=== PATIENT | female | born 1975 | race Caucasian/White ===

== ENCOUNTER → 2018-01-15 | Outpatient (CLI) | payer BC ==
[~2018-01-15] MED LIST: AMOXICILLIN500 MG PO; ATIVAN1 MG PO; B COMPLETE1 EACH PO; DIFLUCAN150 MG PO; FLEXERIL5 MG PO; HYDROCODONE BIT1 T11 PO; MOTRIN800 MG PO; NAPROSYN500 MG PO; NORPRAMIN150 MG PO; PERCOCET 325 MG1 TA2; PRISTIQ50 MG PO; SEROQUEL100 MG PO; TORADOL10 MG PO; VITAMIN D-32000 UNIT PO; ZANTAC 150150 MG PO
== END | disposition home or self-care (01) ==
LOC: RAD 13:41
DX: M54.2 Cervicalgia (principal); M53.82 Other specified dorsopathies, cervical region

== ENCOUNTER → 2018-02-18 | Outpatient (CLI) | payer BC | END | disposition home or self-care (01) | LOC: LAB 09:31 | DX: Z79.899 Other long term (current) drug therapy (principal) ==

== ENCOUNTER 2018-06-29 18:41 | Inpatient (IN) | payer BC ==
[~2018-06-29] VITALS: Ht 162.5 cm; Wt 74.9 kg
--- NOTE | ~2018-06-29 | WRIGHTHP ---
[place], [place] PATIENT HISTORY AND PHYSICAL EXAM NAME: SUSAN JONES [facility] #: [id number] UNIT #: [id number] ROOM: 531 DOCTOR: JABARI ELLIS MD BIRTHDATE: [birth year] DOS: 06/29/2018 HISTORY OF PRESENT ILLNESS: This patient is 43 years old. The patient states that he was coming down steps with a load of laundry. She started experience some midsternal chest pain and then it became heaviness and would not resolve, so he decided to come into the Emergency Room where she was evaluated, because of significant risk factors, she will be admitted. The patient states that the chest pain finally resolved this morning, does not have any fever or chills, any pleuritic symptoms, any abdominal pain, nausea, any emesis. Does not have any shortness of breath or palpitations. She does have a slight cough. PAST MEDICAL HISTORY: Significant for, 1. Major depression. 2. Mild anxiety. 3. History of scoliosis with spinal fixation surgery at the age 14. MEDICATIONS: She is on vitamin D 2000 units daily, Pristiq 100 mg daily, Vistaril 100 mg at bedtime, lorazepam 0.5 b.i.d., ranitidine 150 daily, Rexulti 2 mg daily, Imitrex 100 mg daily p.r.n., vitamin B complex 1 tablet daily. SOCIAL HISTORY: Smokes about one and half pack of cigarettes for the last 20 some years. Denies using any alcohol. Works as a nurse. She is , has 2 children, 13 and 8. Mother has coronary disease and underwent CABG in her early 50s. Father from sepsis. He also had asplenia and did have alcoholism. She has 2 siblings and they are relatively healthy. PHYSICAL EXAMINATION: GENERAL: She is awake, alert and oriented. VITAL SIGNS: Blood pressure is 116/68, pulse of 77, respirations 20, temperature 98.1. LUNGS: Diminished breath sounds, very poor air entry in the lower lobes. HEART: Regular, slightly tachycardic. ABDOMEN: Soft, nontender. EXTREMITIES: Without any edema. ASSESSMENT AND PLAN: 1. The patient who presents with chest pain, precordial, resolved this morning. The patient was ordered nitrates and Lovenox, but he did not take any of those meds. We will wait for the echocardiogram to be done as well as a stress test since the patient's 3 sets of enzymes are negative. If the stress test comes back negative, the patient will be discharged to home. 2. Moderate cigarette smoker, counseled. She did request the patch, but not want anything for discharge. 3. Major depression. Continue home medications. The echo stress test does show any abnormalities, a low dose of beta blockers will be added. [place], [place] PATIENT HISTORY AND PHYSICAL EXAM NAME: SUSAN JONES UNIT #: [id number] ROOM: 531 DOCTOR: JABARI ELLIS MD BIRTHDATE: [birth year] JABARI ELLIS MD CM:HISPHYS:PATIENT HISTORY AND PHYSICAL EXAMINATION 0 9 JABARI ELLIS MD 06/30/18839 interface
--- NOTE | ~2018-06-29 | ST ---
[place], [place] EXERCISE STRESS TEST REPORT NAME: SUSAN JONES [facility] #: [id number] UNIT #: [id number] ROOM: 531 DOCTOR: JABARI LELIS MD BIRTHDATE: [birth year] DOS: REASON FOR TESTING: Evaluation of chest pain. DESCRIPTION: After explaining procedure, obtaining consent, the patient was subjected to Eyad protocol. Resting heart rate was 73 with a blood pressure of 104/70. EKG showed sinus rhythm without any ST-T wave changes. The patient exercised for a period of 8 minutes and 30 seconds, completed 2 minutes and 30 seconds of stage 3. The peak heart rate was 158 with a blood pressure of 110/64. No ST-T wave changes or arrhythmias were noted. The patient did not have any complaints. Within a minute of termination, she was injected with Cardiolite and stress images were taken. ASSESSMENT AND PLAN: Exercise stress test without any ST-T wave changes or arrhythmias. Cardiolite images pending. JABARI ELLIS MD CM:STRESS:EXERCISE STRESS TEST REPORT [id number] JABARI ELLIS MD
--- NOTE | ~2018-06-29 | EKG ---
[place], [place] ELECTROCARDIOGRAM REPORT NAME: SUSAN JONES UNIT #: [id number] ROOM: 531 DOCTOR: NEISHA DRAFT REPORT BIRTHDATE: [birth year] [facility] Test Date: 2018-06-29 Test Time: 21:55:11 Pat Name: SUSAN JONES Department: Room: 531 Gender: F Teletypist: EKG. : 1975 Requested By: SASCHA PURI Order Number: [id number] Reading MD: Ludwig Cabrera MD Measurements Intervals [place] Rate: 62 P: 48 [place]: 133 QRS: 34 QRSD: 76 T: 35 QT: 410 QTc: 417 Interpretive Statements Sinus rhythm Electronically Signed On 07-01-2018 9:48:30 PST by Ludwig Cabrera MD CM:EKGRPT:ELECTROCARDIOGRAM REPORT [id number] SASCHA MANCUSO DRAFT REPORT SASCHA PURI DO
--- NOTE | ~2018-06-29 | EKG ---
[place], [place] ELECTROCARDIOGRAM REPORT NAME: SUSAN JONES UNIT #: [id number] ROOM: 531 DOCTOR: NEISHA DRAFT REPORT BIRTHDATE: [birth year] [facility] Test Date: 2018-06-30 Test Time: 00:27:38 Pat Name: SUSAN JONES Department: Room: 531 Gender: F Scratch Polisher: Melodie Mcgowan : 1975 Requested By: SASCHA PURI Order Number: [id number] Reading MD: Ludwig Cabrera MD Measurements Intervals [place] Rate: 66 P: 50 [place]: 132 QRS: 37 QRSD: 77 T: 49 QT: 408 QTc: 428 Interpretive Statements Sinus arrhythmia Electronically Signed On 07-01-2018 9:48:53 PST by Ludwig Cabrera MD CM:EKGRPT:ELECTROCARDIOGRAM REPORT [id number] SASCHA MANCUSO DRAFT REPORT SASCHA PURI DO
--- NOTE | ~2018-06-29 | EKG ---
[place], [place] ELECTROCARDIOGRAM REPORT NAME: SUSAN JONES UNIT #: [id number] ROOM: 531 DOCTOR: NEISHA DRAFT REPORT BIRTHDATE: [birth year] [facility] Test Date: 2018-06-29 Test Time: 18:43:00 Pat Name: SUSAN JONES Department: ER Room: 531 Gender: F Outside Upholsterer: EKG.OK : 1975 Requested By: SASCHA PURI Order Number: [id number] Reading MD: Ludwig Cabrera MD Measurements Intervals [place] Rate: 95 P: 53 [place]: 129 QRS: 42 QRSD: 87 T: 40 QT: 341 QTc: 429 Interpretive Statements Sinus rhythm Electronically Signed On 07-01-2018 9:48:14 PST by Ludwig Cabrera MD CM:EKGRPT:ELECTROCARDIOGRAM REPORT [id number] SASCHA MANCUSO DRAFT REPORT SASCHA PURI DO
[2018-06-29 18:42] VITALS: BP 101/65
[2018-06-29 19:00] LABS: BASO # 0.1 10*3/uL (0.0-0.1); BASO % 0.5 % (0.0-1.0); EOS # 0.2 10*3/uL (0.0-0.4); EOS % 1.4 % (1.0-4.0); HEMATOCRIT 42.3 % (37.0-47.0); HEMOGLOBIN 14.7 g/dl (12.0-16.0); LYMPH # 2.8 10*3/uL (1.3-4.4); LYMPH % 25.7 % (27.0-41.0); MEAN CELL VOLUME 90.8 fl (81.0-99.0); MEAN CORPUSCULAR HGB 31.5 pg (27.0-31.0); MEAN CORPUSCULAR HGB CONC 34.8 g/dl (33.0-37.0); MEAN PLATELET VOLUME 8.8 fl (9.6-12.3); MONO # 0.7 10*3/uL (0.1-1.0); MONO % 6.1 % (3.0-9.0); NEUT # 7.3 10*3/uL (2.3-7.9); NEUT % 65.9 % (47.0-73.0); PLATELET COUNT AUTOMATED 324 10*3/uL (130-400); RED BLOOD COUNT 4.66 10*6/uL (4.10-5.10); RED CELL DISTRI WIDTH 12.6 % (0-14.5)
[2018-06-29 19:10] LABS: ACT PARTIAL THROMBO TIME 26.1 SECONDS (20.8-31.5)
[2018-06-29 19:23] LABS: ALBUMIN 3.7 gm/dl (3.1-4.5); ALKALINE PHOSPHATASE 43 U/L (45-117); BUN 9 mg/dl (7-24); CHLORIDE 100 mmol/L (98-107); CREATININE 0.82 mg/dL (0.55-1.02); POTASSIUM 3.4 mmol/L (3.5-5.1); SGOT/AST 14 IU/L (3-35); SGPT/ALT 24 U/L (12-78); SODIUM 134 mmol/L (136-145); TOTAL PROTEIN 6.8 gm/dL (6.4-8.2)
[2018-06-29 19:33] LABS: TROPONIN I < 0.015 ng/ml (<0.045)
[2018-06-29] MEDS ORDERED: ATIVAN0.5 MG PO (20:24)
[2018-06-29] MEDS ORDERED: PRISTIQ100 MG PO (20:24)
[2018-06-29] MEDS ORDERED: VISTARIL50 MG PO (20:25)
[2018-06-29] MEDS ORDERED: REXULTI2 MG PO (20:28)
[2018-06-29] MEDS ORDERED: IMITREX100 MG PO (20:29)
[2018-06-29 21:00] VITALS: BP 113/60
[2018-06-29 21:11] VITALS: BP 113/60
[2018-06-30] VITALS: BP 116/68
[2018-06-30 12:00] VITALS: BP 97/52
[2018-06-30 16:00] VITALS: BP 111/59
[2018-07-22] MEDS ORDERED: NORCO 5-325 TA1 EACH PO (15:16)
[2018-07-22] MEDS ORDERED: FLOMAX0.4 MG PO (15:16)
[2018-07-22] MEDS ORDERED: IBUPROFEN600 MG PO (15:16)
== END 2018-06-30 17:53 | disposition home or self-care (01) | DRG 313 ==
LOC: ED 18:41 → EDHOLD 20:04 → 5E 20:04 → EDHOLD 20:04 → 5E 20:43
PROVIDERS: Emergency Medicine; ADMIT Internal Medicine
PROC: 4A02XM4 Measurement of Cardiac Total Activity, External Approach (ICD-10-PCS; principal; 2018-06-30)
PROC: 3E073KZ Introduction of Other Diagnostic Substance into Coronary Artery, Percutaneous Approach (ICD-10-PCS; principal; 2018-06-30)
DX: R07.89 Other chest pain (principal); F32.9 Major depressive disorder, single episode, unspecified; F17.210 Nicotine dependence, cigarettes, uncomplicated; F41.9 Anxiety disorder, unspecified

== ENCOUNTER → 2018-07-22 | Emergency (ER) | payer BC ==
[~2018-07-22] VITALS: Wt 74.8 kg
[~2018-07-22] MED LIST changes: +ATIVAN0.5 MG PO; +FLOMAX0.4 MG PO; +IBUPROFEN600 MG PO; +IMITREX100 MG PO; +NORCO 5-325 TA1 EACH PO; +PRISTIQ100 MG PO; +REXULTI2 MG PO; +VISTARIL50 MG PO
[2018-07-22 11:01] LABS: BASO % 0.4 % (0.0-1.0); EOS # 0.1 10*3/uL (0.0-0.4); EOS % 0.9 % (1.0-4.0); HEMATOCRIT 43.6 % (37.0-47.0); HEMOGLOBIN 15.6 g/dl (12.0-16.0); LYMPH # 0.8 10*3/uL (1.3-4.4); LYMPH % 11.3 % (27.0-41.0); MEAN CELL VOLUME 90.1 fl (81.0-99.0); MEAN CORPUSCULAR HGB 32.2 pg (27.0-31.0); MEAN CORPUSCULAR HGB CONC 35.8 g/dl (33.0-37.0); MEAN PLATELET VOLUME 9.4 fl (9.6-12.3); MONO # 0.4 10*3/uL (0.1-1.0); MONO % 5.2 % (3.0-9.0); NEUT # 6.1 10*3/uL (2.3-7.9); NEUT % 81.8 % (47.0-73.0); PLATELET COUNT AUTOMATED 261 10*3/uL (130-400); RED BLOOD COUNT 4.84 10*6/uL (4.10-5.10); RED CELL DISTRI WIDTH 12.6 % (0-14.5); WHITE BLOOD COUNT 7.5 10*3/uL (4.8-10.8)
[2018-07-22 11:16] LABS: ACT PARTIAL THROMBO TIME 26.5 SECONDS (20.8-31.5)
[2018-07-22 11:33] LABS: ALBUMIN 4.4 gm/dl (3.1-4.5); ALKALINE PHOSPHATASE 41 U/L (45-117); BUN 7 mg/dl (7-24); CHLORIDE 101 mmol/L (98-107); CREATININE 0.68 mg/dL (0.55-1.02); LIPASE 89 U/L (73-393); POTASSIUM 3.7 mmol/L (3.5-5.1); SGOT/AST 15 IU/L (3-35); SGPT/ALT 25 U/L (12-78); SODIUM 132 mmol/L (136-145); TOTAL PROTEIN 7.1 gm/dL (6.4-8.2)
[2018-07-22 12:17] LABS: BILIRUBIN NEGATIVE (NEGATIVE); BLOOD NEGATIVE (NEGATIVE); CLARITY SL CLOUDY (CLEAR); COLOR YELLOW (YELLOW); GLUCOSE NEGATIVE (NEGATIVE); KETONE 2+ (NEGATIVE); LEUKO ESTERASE NEGATIVE (NEGATIVE); NITRITE NEGATIVE (NEGATIVE); UROBILINOGEN 0.2 E.U./dl (0.2-1.0)
[2018-07-22 12:45] LABS: BACTERIA 1+; MUCOUS 1+
== END ==
LOC: ED 09:52
PROVIDERS: Physician Assistant
DX: N23 Unspecified renal colic (principal); Z79.899 Other long term (current) drug therapy

== ENCOUNTER → 2018-08-04 | Outpatient (CLI) | payer BC | END | disposition home or self-care (01) | LOC: RAD 13:08 | DX: M25.559 Pain in unspecified hip (principal) ==

== ENCOUNTER → 2019-04-07 | Outpatient (CLI) | payer BC ==
[2019-04-07 15:50] LABS: BILIRUBIN NEGATIVE (NEGATIVE); BLOOD NEGATIVE (NEGATIVE); CLARITY CLEAR (CLEAR); COLOR YELLOW (YELLOW); GLUCOSE NEGATIVE (NEGATIVE); KETONE NEGATIVE (NEGATIVE); LEUKO ESTERASE NEGATIVE (NEGATIVE); NITRITE NEGATIVE (NEGATIVE); UROBILINOGEN 0.2 E.U./dl (0.2-1.0)
[2019-04-07 16:03] LABS: EPITHELIAL CELLS 0-2
== END | disposition home or self-care (01) ==
LOC: LAB 13:33
PROVIDERS: Internal Medicine
DX: R29.2 Abnormal reflex (principal)

== ENCOUNTER → 2020-04-03 | Outpatient (CLI) | payer BC | LOC: COVID19 14:02 | PROVIDERS: ATTEND Internal Medicine | DX: U07.1 COVID-19 (principal) ==

== ENCOUNTER → 2020-05-14 | Outpatient (CLI) | payer BC | END | disposition home or self-care (01) | LOC: MAMMO 05-09 11:00 | PROVIDERS: ATTEND Internal Medicine | DX: Z12.31 Encounter for screening mammogram for malignant neoplasm of breast (principal); N64.89 Other specified disorders of breast ==

== ENCOUNTER 2020-06-03 12:53 | Emergency (ER) | payer BC ==
[~2020-06-03] VITALS: Ht 162.5 cm; Wt 81.6 kg
[2020-06-03] MEDS ORDERED: IBUPROFEN600 MG PO (13:14)
== END 2020-06-03 15:14 | disposition home or self-care (01) ==
LOC: ED 12:53
DX: S83.92XA Sprain of unspecified site of left knee, initial encounter (principal); F32.9 Major depressive disorder, single episode, unspecified; F41.9 Anxiety disorder, unspecified; J45.909 Unspecified asthma, uncomplicated; F17.200 Nicotine dependence, unspecified, uncomplicated; Z79.899 Other long term (current) drug therapy; Z98.890 Other specified postprocedural states; W01.0XXA Fall on same level from slipping, tripping and stumbling without subsequent striking against object, initial encounter; Y93.89 Activity, other specified; Y92.89 Other specified places as the place of occurrence of the external cause; Y99.8 Other external cause status

== ENCOUNTER → 2020-07-19 | Outpatient (CLI) | payer BC ==
[2020-07-19 09:57] LABS: BASO % 0.5 % (0.0-1.0); EOS # 0.2 10*3/uL (0.0-0.4); EOS % 2.4 % (1.0-4.0); HEMATOCRIT 39.9 % (37.0-47.0); LYMPH # 1.7 10*3/uL (1.3-4.4); LYMPH % 27.8 % (27.0-41.0); MEAN CELL VOLUME 90.7 fl (81.0-99.0); MEAN CORPUSCULAR HGB 30.7 pg (27.0-31.0); MEAN CORPUSCULAR HGB CONC 33.8 g/dl (33.0-37.0); MEAN PLATELET VOLUME 8.8 fl (9.6-12.3); MONO # 0.4 10*3/uL (0.1-1.0); MONO % 6.1 % (3.0-9.0); NEUT # 3.9 10*3/uL (2.3-7.9); NEUT % 62.7 % (47.0-73.0); PLATELET COUNT AUTOMATED 299 10*3/uL (130-400); WHITE BLOOD COUNT 6.3 10*3/uL (4.8-10.8)
[2020-07-19 10:15] LABS: ALBUMIN 3.4 gm/dl (3.1-4.5); ALKALINE PHOSPHATASE 42 U/L (45-117); BUN 12 mg/dl (7-24); CHLORIDE 108 mmol/L (98-107); CHOLESTEROL 217 mg/dL (<200); CREATININE 0.74 mg/dL (0.55-1.02); FREE T4 0.86 ng/dl (0.76-1.46); HDL CHOLESTEROL 65 mg/dl (40-60); LDL CHOLESTEROL 138 mg/dL (9-159); POTASSIUM 3.9 mmol/L (3.5-5.1); SGOT/AST 14 IU/L (3-35); SGPT/ALT 28 U/L (12-78); SODIUM 140 mmol/L (136-145); TOTAL PROTEIN 6.6 gm/dL (6.4-8.2); TRIGLYCERIDES 69 mg/dl (<150); VLDL CHOLESTEROL 14 mg/dL (6-40)
[2020-07-19 11:26] LABS: VITAMIN D, 25-HYDROXY 24.2 ng/mL (30-100)
== END | disposition home or self-care (01) ==
LOC: LAB 09:25
PROVIDERS: ATTEND Internal Medicine
DX: Z00.00 Encounter for general adult medical examination without abnormal findings (principal); I10 Essential (primary) hypertension; E55.9 Vitamin D deficiency, unspecified; Z13.1 Encounter for screening for diabetes mellitus; Z13.220 Encounter for screening for lipoid disorders

== ENCOUNTER 2020-11-27 03:07 | Emergency (ER) | payer BC ==
[~2020-11-27] VITALS: Ht 162.5 cm; Wt 86.2 kg
[2020-11-27 03:45] LABS: BILIRUBIN Negative (Negative); BLOOD Negative (Negative); CLARITY Clear (Clear); COLOR Yellow (Yellow); GLUCOSE Negative (Negative); KETONE Negative (Negative); LEUKO ESTERASE 2+ (Negative); NITRITE Negative (Negative); UROBILINOGEN 0.2 E.U./dl (0.0-1.0)
[2020-11-27 03:53] LABS: BACTERIA TRACE; EPITHELIAL CELLS 16-20
[2020-11-27] MEDS ORDERED: CIPRO500 MG PO (04:13)
[2020-11-27] MEDS ORDERED: HYDROCODONE-AC1 EAC1 PO (15:06)
== END 2020-11-27 04:45 | disposition home or self-care (01) ==
LOC: ED 03:07
PROVIDERS: Internal Medicine
DX: N39.0 Urinary tract infection, site not specified (principal); Z87.442 Personal history of urinary calculi; Z98.51 Tubal ligation status; Z79.899 Other long term (current) drug therapy; Z98.890 Other specified postprocedural states

== ENCOUNTER 2020-11-27 11:14 | Emergency (ER) | payer BC ==
[~2020-11-27] VITALS: Ht 162.5 cm; Wt 86.2 kg
[~2020-11-27 11:14] MED LIST changes: +CIPRO500 MG PO
[2020-11-27 11:47] LABS: BASO % 0.2 % (0.0-1.0); EOS % 0.1 % (1.0-4.0); HEMATOCRIT 41.4 % (37.0-47.0); LYMPH # 0.8 10*3/uL (1.3-4.4); LYMPH % 8.3 % (27.0-41.0); MEAN CELL VOLUME 87.7 fl (81.0-99.0); MEAN CORPUSCULAR HGB 31.1 pg (27.0-31.0); MEAN CORPUSCULAR HGB CONC 35.5 g/dl (33.0-37.0); MONO # 0.2 10*3/uL (0.1-1.0); MONO % 2.4 % (3.0-9.0); NEUT # 8.6 10*3/uL (2.3-7.9); NEUT % 88.6 % (47.0-73.0); PLATELET COUNT AUTOMATED 300 10*3/uL (130-400); RED BLOOD COUNT 4.72 10*6/uL (4.10-5.10); WHITE BLOOD COUNT 9.7 10*3/uL (4.8-10.8)
[2020-11-27 12:02] LABS: ALKALINE PHOSPHATASE 48 U/L (45-117); BUN 16 mg/dl (7-24); CHLORIDE 107 mmol/L (98-107); CREATININE 0.65 mg/dL (0.55-1.02); LIPASE 82 U/L (73-393); POTASSIUM 3.6 mmol/L (3.5-5.1); SGOT/AST 10 IU/L (3-35); SGPT/ALT 21 U/L (12-78); SODIUM 138 mmol/L (136-145); TOTAL PROTEIN 7.4 gm/dL (6.4-8.2)
[2020-11-27] MEDS ORDERED: HYDROCODONE-AC1 EAC1 PO (15:06)
== END 2020-11-27 15:17 | disposition home or self-care (01) ==
LOC: ED 11:14
PROVIDERS: Physician Assistant
DX: R10.84 Generalized abdominal pain (principal); R11.2 Nausea with vomiting, unspecified; Z79.899 Other long term (current) drug therapy

== ENCOUNTER → 2021-05-07 | Outpatient (CLI) | payer BC ==
[~2021-05-07] MED LIST changes: +HYDROCODONE-AC1 EAC1 PO
== END | disposition home or self-care (01) ==
LOC: COVID19 15:42
PROVIDERS: ATTEND Internal Medicine
DX: Z20.822 Contact with and (suspected) exposure to COVID-19 (principal)

== ENCOUNTER → 2022-04-16 | Outpatient (CLI) | payer BC | END | disposition home or self-care (01) | LOC: MAMMO 10:00 | PROVIDERS: ATTEND Internal Medicine | DX: Z12.31 Encounter for screening mammogram for malignant neoplasm of breast (principal); N63.11 Unspecified lump in the right breast, upper outer quadrant ==

== ENCOUNTER → 2022-04-30 | Outpatient (CLI) | payer BC | END | disposition home or self-care (01) | LOC: MAMMO 00:21 | PROVIDERS: ATTEND Internal Medicine | DX: N63.10 Unspecified lump in the right breast, unspecified quadrant (principal); R92.2 Inconclusive mammogram ==

== ENCOUNTER 2022-05-03 21:34 | Emergency (ER) | payer BC ==
[~2022-05-03] VITALS: Ht 165.1 cm; Wt 72.6 kg
[2022-05-03 22:39] LABS: BASO % 0.2 % (0.0-1.0); EOS % 0.4 % (1.0-4.0); HEMATOCRIT 40.8 % (37.0-47.0); LYMPH # 0.8 10*3/uL (1.3-4.4); LYMPH % 14.2 % (27.0-41.0); MEAN CELL VOLUME 87.7 fl (81.0-99.0); MEAN CORPUSCULAR HGB 29.7 pg (27.0-31.0); MEAN CORPUSCULAR HGB CONC 33.8 g/dl (33.0-37.0); MEAN PLATELET VOLUME 9.1 fl (9.6-12.3); MONO # 0.6 10*3/uL (0.1-1.0); MONO % 12.1 % (3.0-9.0); NEUT # 3.8 10*3/uL (2.3-7.9); NEUT % 72.9 % (47.0-73.0); PLATELET COUNT AUTOMATED 230 10*3/uL (130-400); RED BLOOD COUNT 4.65 10*6/uL (4.10-5.10); RED CELL DISTRI WIDTH 13.4 % (0-14.5); WHITE BLOOD COUNT 5.3 10*3/uL (4.8-10.8)
[2022-05-03 22:56] LABS: ALKALINE PHOSPHATASE 44 U/L (46-116); BUN 5 mg/dl (9-23); CHLORIDE 105 mmol/L (98-107); SGPT/ALT 25 U/L (10-49)
== END 2022-05-04 01:15 | disposition home or self-care (01) ==
LOC: ED 21:34
PROVIDERS: Internal Medicine
DX: I47.1 Supraventricular tachycardia (principal); E87.6 Hypokalemia; Z90.89 Acquired absence of other organs; Z90.49 Acquired absence of other specified parts of digestive tract

== ENCOUNTER → 2022-07-15 | Outpatient (CLI) | payer BC | END | disposition home or self-care (01) | LOC: CARD 07:30 | PROVIDERS: ATTEND Internal Medicine Cardiovascular Disease | DX: I47.1 Supraventricular tachycardia (principal) ==

== ENCOUNTER → 2022-08-19 | Outpatient (CLI) | payer BC | END | disposition home or self-care (01) | LOC: US 15:32 | PROVIDERS: ATTEND Internal Medicine | DX: N83.292 Other ovarian cyst, left side (principal); D25.9 Leiomyoma of uterus, unspecified ==

== ENCOUNTER → 2022-11-02 | Outpatient (CLI) | payer BC ==
[2022-11-02 14:43] LABS: BASO # 0.1 10*3/uL (0.0-0.1); BASO % 0.4 % (0.0-1.0); EOS # 0.2 10*3/uL (0.0-0.4); EOS % 1.3 % (1.0-4.0); LYMPH # 2.5 10*3/uL (1.3-4.4); LYMPH % 21.5 % (27.0-41.0); MEAN CELL VOLUME 92.1 fl (81.0-99.0); MEAN CORPUSCULAR HGB 32.4 pg (27.0-31.0); MEAN CORPUSCULAR HGB CONC 35.1 g/dl (33.0-37.0); MEAN PLATELET VOLUME 8.8 fl (9.6-12.3); MONO # 0.8 10*3/uL (0.1-1.0); MONO % 7.3 % (3.0-9.0); NEUT # 7.9 10*3/uL (2.3-7.9); NEUT % 69.1 % (47.0-73.0); PLATELET COUNT AUTOMATED 352 10*3/uL (130-400); RED BLOOD COUNT 4.45 10*6/uL (4.10-5.10); RED CELL DISTRI WIDTH 12.9 % (0-14.5); WHITE BLOOD COUNT 11.5 10*3/uL (4.8-10.8)
[2022-11-02 15:28] LABS: ALKALINE PHOSPHATASE 53 U/L (46-116); BUN 11 mg/dl (9-23); CHLORIDE 101 mmol/L (98-107); CHOLESTEROL 196 mg/dL (<200); LDL CHOLESTEROL 123 mg/dL (9-159); POTASSIUM 3.5 mmol/L (3.4-5.1); SGPT/ALT 26 U/L (10-49); THYROID STIM HORMONE (HS) 0.919 uIU/ml (0.550-4.780); TOTAL PROTEIN 6.3 gm/dL (6.0-8.0); TRIGLYCERIDES 94 mg/dl (<150); VITAMIN D, 25-HYDROXY 48.4 ng/mL (30-100)
== END | disposition home or self-care (01) ==
LOC: LAB 14:28
PROVIDERS: ATTEND Internal Medicine
DX: F33.2 Major depressive disorder, recurrent severe without psychotic features (principal); F41.1 Generalized anxiety disorder; F90.9 Attention-deficit hyperactivity disorder, unspecified type; I10 Essential (primary) hypertension

== ENCOUNTER 2022-11-10 21:41 | Emergency (ER) | payer BC ==
[~2022-11-10] VITALS: Ht 160 cm; Wt 77.1 kg
[2022-11-10 22:12] LABS: BASO # 0.1 10*3/uL (0.0-0.1); BASO % 0.4 % (0.0-1.0); EOS # 0.2 10*3/uL (0.0-0.4); EOS % 1.7 % (1.0-4.0); HEMATOCRIT 41.2 % (37.0-47.0); LYMPH # 3.2 10*3/uL (1.3-4.4); LYMPH % 27.2 % (27.0-41.0); MEAN CELL VOLUME 92.6 fl (81.0-99.0); MEAN CORPUSCULAR HGB 32.8 pg (27.0-31.0); MEAN CORPUSCULAR HGB CONC 35.4 g/dl (33.0-37.0); MEAN PLATELET VOLUME 8.6 fl (9.6-12.3); MONO # 0.9 10*3/uL (0.1-1.0); MONO % 7.4 % (3.0-9.0); NEUT # 7.5 10*3/uL (2.3-7.9); PLATELET COUNT AUTOMATED 324 10*3/uL (130-400); RED BLOOD COUNT 4.45 10*6/uL (4.10-5.10); RED CELL DISTRI WIDTH 12.7 % (0-14.5); WHITE BLOOD COUNT 11.9 10*3/uL (4.8-10.8)
[2022-11-10 22:24] LABS: ACT PARTIAL THROMBO TIME 30.5 SECONDS (20.0-32.1)
[2022-11-10 22:28] LABS: BILIRUBIN Negative (Negative); BLOOD Negative (Negative); CLARITY Clear (Clear); COLOR Yellow (Yellow); GLUCOSE Negative (Negative); KETONE Negative (Negative); LEUKO ESTERASE Negative (Negative); NITRITE Negative (Negative); PH 6.5 (4.5-8.0); UROBILINOGEN 0.2 E.U./dl (0.0-1.0)
[2022-11-10 22:31] LABS: ALKALINE PHOSPHATASE 51 U/L (46-116); BUN 12 mg/dl (9-23); CHLORIDE 102 mmol/L (98-107); LIPASE 37 U/L (12-53); POTASSIUM 3.9 mmol/L (3.4-5.1); SGPT/ALT 20 U/L (10-49); TOTAL PROTEIN 6.1 gm/dL (6.0-8.0)
[2022-11-10 22:32] LABS: BETA-HCG, QUANT < 3.0 mIU/mL (3-10)
[2022-11-10 22:42] LABS: RBC 0-2 rbc/hpf (0-2); WBC 0-2 wbc/hpf (0-5)
== END 2022-11-11 00:04 | disposition home or self-care (01) ==
LOC: ED 21:41
PROVIDERS: Internal Medicine
DX: F17.200 Nicotine dependence, unspecified, uncomplicated (principal); Z79.2 Long term (current) use of antibiotics; Z79.899 Other long term (current) drug therapy; I47.1 Supraventricular tachycardia

== ENCOUNTER → 2022-12-24 | Outpatient (CLI) | payer BC | END | disposition home or self-care (01) | LOC: MAMMO 12-17 09:00 | PROVIDERS: ATTEND Internal Medicine | DX: R92.8 Other abnormal and inconclusive findings on diagnostic imaging of breast (principal) ==

== ENCOUNTER → 2023-07-21 | Outpatient (CLI) | payer BC | END | disposition home or self-care (01) | LOC: MAMMO 01:56 | PROVIDERS: ATTEND Internal Medicine | DX: R92.8 Other abnormal and inconclusive findings on diagnostic imaging of breast (principal) ==

== ENCOUNTER → 2023-10-13 | Outpatient (CLI) | payer BC | END | disposition home or self-care (01) | LOC: ORTHO 02:17 | PROVIDERS: ATTEND Orthopaedic Surgery | DX: M25.551 Pain in right hip (principal) ==

== ENCOUNTER → 2024-02-28 | Outpatient (CLI) | payer BC | END | disposition home or self-care (01) | LOC: ORTHO 02:32 | PROVIDERS: ATTEND Orthopaedic Surgery | DX: G56.03 Carpal tunnel syndrome, bilateral upper limbs (principal) ==

== ENCOUNTER → 2024-04-13 | Day surgery (SDC) | payer BC ==
[~2024-04-13] VITALS: Ht 160 cm; Wt 88.5 kg
[~2024-04-13] MED LIST changes: +AUVELITY ER 451 EACH PO; +Albuterol Sulfate 2.5 MG/3 ML VIAL NEB ONE; +BUPIVACAINE 0.5% 10 ML VIAL ONE; +Lactated Ringer's Solution 1,000 ML IV ONE; +Lidocaine Hydrochloride 2% 10 ML AMP IM ONE; +Lidocaine Hydrochloride 30 ML VIAL ONE; +MAGNESIUM500 MG PO; +PROPOFOL 200 MG/20 ML VIAL IV ONE; +PROPRANOLOL HCL60 MG PO; +SINGULAIR10 M1 PO; +STRATTERA80 MG PO; +WEGOVY0.25 MG/0. SQ; +ceFAZolin sodium/sodium chlor 10 ML IV ONE
[2024-04-13 06:36] VITALS: BP 102/39
[2024-04-13 07:06] LABS: BUN 13 mg/dl (9-23); CHLORIDE 107 mmol/L (98-107)
[2024-04-13 08:00] VITALS: BP 83/65
[2024-04-13 08:15] VITALS: BP 115/61
[2024-04-13 08:30] VITALS: BP 116/64
== END | disposition home or self-care (01) ==
LOC: SDC 04-03 08:00
PROVIDERS: ATTEND Orthopaedic Surgery
DX: G56.03 Carpal tunnel syndrome, bilateral upper limbs (principal); R20.0 Anesthesia of skin; R20.2 Paresthesia of skin; G43.909 Migraine, unspecified, not intractable, without status migrainosus; J45.909 Unspecified asthma, uncomplicated; F32.A Depression, unspecified; F41.9 Anxiety disorder, unspecified; F17.210 Nicotine dependence, cigarettes, uncomplicated; Z90.89 Acquired absence of other organs; Z98.51 Tubal ligation status; Z87.440 Personal history of urinary (tract) infections; Z90.710 Acquired absence of both cervix and uterus; Z98.890 Other specified postprocedural states; Z79.891 Long term (current) use of opiate analgesic; Z79.899 Other long term (current) drug therapy; Z88.8 Allergy status to other drugs, medicaments and biological substances; Z82.49 Family history of ischemic heart disease and other diseases of the circulatory system

== ENCOUNTER → 2024-10-09 | Outpatient (CLI) | payer BC ==
[~2024-10-09] MED LIST changes: -Albuterol Sulfate 2.5 MG/3 ML VIAL NEB ONE; -BUPIVACAINE 0.5% 10 ML VIAL ONE; -Lactated Ringer's Solution 1,000 ML IV ONE; -Lidocaine Hydrochloride 2% 10 ML AMP IM ONE; -Lidocaine Hydrochloride 30 ML VIAL ONE; -PROPOFOL 200 MG/20 ML VIAL IV ONE; -ceFAZolin sodium/sodium chlor 10 ML IV ONE
== END | disposition home or self-care (01) ==
LOC: MAMMO 10:44
PROVIDERS: ATTEND Internal Medicine
DX: Z12.31 Encounter for screening mammogram for malignant neoplasm of breast (principal); R92.333 Mammographic heterogeneous density, bilateral breasts